=== PATIENT | male | born 1995 | race Hispanic/Latino ===

== ENCOUNTER 2020-07-21 22:33 | Observation (INO) | payer SELFPAY ==
[~2020-07-21] VITALS: Ht 172.7 cm; Wt 82.0 kg
[2020-07-21 23:39] LABS: HEMATOCRIT 50.8 % (39.0-50.0); HEMOGLOBIN 16.8 g/dl (14.0-18.0); IMMATURE GRANULOCYTES 0.8 % (0.0-5.0); MEAN CORPUSCULAR HGB 27.8 pG CALC (26.0-32.0); MEAN CORPUSCULAR HGB CONC 33.1 g/dL CAL (32.0-36.0); NEUT# 12.35 thou/uL (1.82-7.42); RED BLOOD COUNT 6.05 mill/uL (4.70-6.10); RED CELL DISTRI WIDTH 13.6 % (11.5-15.5)
[2020-07-21] MEDS ORDERED: MULTIVITAMI9 PO (23:41)
[2020-07-21 23:43] LABS: ALBUMIN 5.9 g/dL (3.2-5.0); BILIRUBIN, TOTAL 0.8 mg/dL (0.0-1.4); CREATININE 3.2 mg/dL (0.7-1.3); POTASSIUM 5.1 mmol/l (3.5-5.1)
[2020-07-21 23:51] LABS: TOTAL PROTEIN 11.1 g/dL (6.3-8.2)
--- NOTE | 2020-07-22 00:54 | NUR ---
Reassessment of patient completed. No distress noted.
--- NOTE | 2020-07-22 01:38 | NUR ---
Reassessment of patient completed. No distress noted.
--- NOTE | 2020-07-22 03:58 | NUR ---
Reassessment of patient completed. No distress noted.
--- NOTE | 2020-07-22 04:12 | NUR ---
Admission Note Report Given to: ELIZABETH Transported by: X Wheelchair Stretcher Transported with: X Nurse Transporter X [employer] IV O2 X Information [employer] Location: ICU X [facility]
--- NOTE | 2020-07-22 04:13 | NUR ---
Reassessment of patient completed. No distress noted.
[2020-07-22 04:15] VITALS: BP 120/76
--- NOTE | 2020-07-22 04:15 | NUR ---
PT RECEIVED FROM ED TO ROOM 274. ARRIVES VIA WC ACCOMPANIED BY CHANTEL LUKE. PT AMBULATORY TO BED. GAIT UNSTEADY. PT DENIES PAIN AT THIS TIME. ORIENTED TO UNIT, ROOM, CALL HURT, LIGHTS, TV. ICE WATER PROVIDED. CALL HURT WITHIN REACH. AGREES TO CALL PRN.
--- NOTE | 2020-07-22 04:30 | NUR ---
PHYSICAL ASSESMENT COMPLETE. PT CURRENTLY DENIES PAIN OR DISCOMFORT. SCHEDULED MEDICATIONS AND PRN MEDICATION ADMINISTERED, SEE E-MAR. PT DENIES ANY NEEDS AT THIS TIME. PLAN OF CARE REVIEWED, ITEMS WITHIN REACH, BED LOCKED IN LOW POSITION W/ BEDRAILS UP X2. CALL HURT WITHIN REACH, AGREES TO CALL PRN.
[2020-07-22 08:00] VITALS: BP 110/65
--- NOTE | 2020-07-22 08:19 | NUR ---
SHIFT CHANGE REPORT, PT AWAKE ALERT AND ORIENTED X 4, C/O MILD ABD PAIN @ 2/10, REFUSING TO EAT AT THIS TIME BUT DENIES NAUSEA, IVF 0.9 NS INFUSING @ 100ML/HR TO SITE IN RAC, CALL HURT IN REACH AND BED LOCKED IN LOWEST POSITION.
[2020-07-22 10:15] VITALS: BP 125/75
[2020-07-22 11:03] LABS: HEMATOCRIT 45.9 % (39.0-50.0); IMMATURE GRANULOCYTES 0.5 % (0.0-5.0); MEAN CELL VOLUME 86.9 fL CALC (80.0-100.0); MEAN CORPUSCULAR HGB 27.7 pG CALC (26.0-32.0); MEAN CORPUSCULAR HGB CONC 31.8 g/dL CAL (32.0-36.0); NEUT# 5.15 thou/uL (1.82-7.42); RED BLOOD COUNT 5.28 mill/uL (4.70-6.10); RED CELL DISTRI WIDTH 14.1 % (11.5-15.5)
[2020-07-22 11:04] LABS: HEMOGLOBIN 14.6 g/dl (14.0-18.0)
[2020-07-22 11:20] LABS: BUN 26 mg/dL (9-20); CHLORIDE 100 mmol/l (95-108); SODIUM 137 mmol/l (137-146)
[2020-07-22 11:23] LABS: ANION GAP 12 (6-22 (CALC)); BUN/CREATININE RATIO 22 (12-20 (CALC)); CARBON DIOXIDE 29 mmol/l (22-30); CREATININE 1.2 mg/dL (0.7-1.3); GFR > 60 ML/MIN (>=60 (CALC)); GFR FOR AFR.AMER. > 60 ML/MIN (>=60 (CALC)); POTASSIUM 3.9 mmol/l (3.5-5.1)
[2020-07-22] MEDS ORDERED: ZOFRAN4 MG/TAB PO (11:35)
[2020-07-22 12:21] LABS: URINE BILIRUBIN - DIPSTICK NEGATIVE (NEGATIVE); URINE BLOOD DIPSTICK NEGATIVE (NEGATIVE); URINE COLOR YELLOW; URINE GLUCOSE - DIPSTICK NEGATIVE (NEGATIVE); URINE KETONE NEGATIVE (NEGATIVE); URINE LEUK ESTERASE NEGATIVE (NEGATIVE); URINE NITRITE - DIPSTICK NEGATIVE (Negative); URINE PROTEIN - DIPSTICK TRACE mg/dL (NEG-TRACE); URINE SPECIFIC GRAVITY 1.025; URINE UROBILINOGEN - DIPSTICK 0.2 E.U./dL (0.2)
--- NOTE | 2020-07-22 12:24 | NUR ---
Discharge instructions given. Patient verbalizes understanding of same. Discharged in good condition via Wheelchair to Home with friend. All belongings sent with pt.
== END 2020-07-22 12:23 | disposition home or self-care (01) | DRG 641 ==
LOC: ED 22:33 → MS2 07-22 02:36
PROVIDERS: Family Medicine; Nurse Practitioner; ADMIT Internal Medicine; ATTEND Internal Medicine
DX: E86.0 Dehydration (principal); N17.9 Acute kidney failure, unspecified; F15.10 Other stimulant abuse, uncomplicated; F10.10 Alcohol abuse, uncomplicated; R93.5 Abnormal findings on diagnostic imaging of other abdominal regions, including retroperitoneum; E87.2 Acidosis; E83.52 Hypercalcemia; F17.200 Nicotine dependence, unspecified, uncomplicated; Z20.822 Contact with and (suspected) exposure to COVID-19
CPT/HCPCS: G0378; J1650

== ENCOUNTER 2021-04-19 03:39 | Emergency (ER) | payer SELFPAY ==
[~2021-04-19] VITALS: Ht 162.6 cm; Wt 76.0 kg
[~2021-04-19 03:39] MED LIST: MULTIVITAMI9 PO; ZOFRAN4 MG/TAB PO
[2021-04-19] MEDS ORDERED: KEFLEX500 MG PO (04:31)
[2021-04-19] MEDS ORDERED: ULTRAM50 M1 PO (04:31)
[2021-04-19 05:00] VITALS: BP 118/69
== END 2021-04-19 05:00 | disposition home or self-care (01) | DRG 605 ==
LOC: ED 03:39
PROC: 0HQCXZZ Repair Left Upper Arm Skin, External Approach (ICD-10-PCS; principal; 2021-04-19)
DX: S41.132A Puncture wound without foreign body of left upper arm, initial encounter (principal); X99.9XXA Assault by unspecified sharp object, initial encounter; Y92.009 Unspecified place in unspecified non-institutional (private) residence as the place of occurrence of the external cause

== ENCOUNTER 2021-04-20 17:19 | Emergency (ER) | payer SELFPAY ==
[~2021-04-20] VITALS: Ht 162.6 cm; Wt 81.8 kg
[~2021-04-20 17:19] MED LIST changes: +KEFLEX500 MG PO; +ULTRAM50 M1 PO
[2021-04-20 18:40] VITALS: BP 161/98
== END 2021-04-20 18:40 | disposition home or self-care (01) | DRG 950 ==
LOC: ED 17:19
DX: S41.112D Laceration without foreign body of left upper arm, subsequent encounter (principal); X58.XXXD Exposure to other specified factors, subsequent encounter

== ENCOUNTER 2021-04-28 19:31 | Emergency (ER) | payer SELFPAY ==
[~2021-04-28] VITALS: Ht 162.6 cm; Wt 75.0 kg
[2021-04-28 20:01] VITALS: BP 124/74
== END 2021-04-28 20:06 | disposition home or self-care (01) | DRG 950 ==
LOC: ED 19:31
DX: S41.112D Laceration without foreign body of left upper arm, subsequent encounter (principal); X58.XXXD Exposure to other specified factors, subsequent encounter; Z86.16 Personal history of COVID-19

== ENCOUNTER 2024-04-06 21:16 | Observation (INO) | payer SELFPAY ==
[~2024-04-06] VITALS: Ht 162.6 cm; Wt 103.8 kg
[2024-04-06 21:39] VITALS: BP 125/81
[2024-04-06] MEDS ORDERED: VANCOMYCIN HCL 1 GM in SODIUM CHLORIDE 0.9% 500 ML IV ONE (21:40)
[2024-04-06] MEDS ORDERED: KETOROLAC TROMETHAMINE 30 MG/ML SDV IV ONE (21:50)
[2024-04-06 22:00] VITALS: BP 118/68
[2024-04-06 22:01] LABS: BASO% 0.2 % (0-3); EOS% 2.7 % (0-8); HEMATOCRIT 43.3 % (39.0-50.0); HEMOGLOBIN 14.2 g/dl (14.0-18.0); IMMATURE GRANULOCYTES 0.4 % (0.0-5.0); LYMPH% 24.6 % (15-41); MEAN CELL VOLUME 84.4 fL CALC (80.0-100.0); MEAN CORPUSCULAR HGB 27.7 pG CALC (26.0-32.0); MEAN CORPUSCULAR HGB CONC 32.8 g/dL CAL (32.0-36.0); NEUT# 10.42 thou/uL (1.82-7.42); NEUT% 66.1 % (42-76); RED BLOOD COUNT 5.13 mill/uL (4.70-6.10)
[2024-04-06 22:18] LABS: C-REACTIVE PROTEIN 0.8 mg/dL (0-0.9); CREATININE 0.9 mg/dL (0.7-1.3); POTASSIUM 3.9 mmol/l (3.5-5.1); TOTAL PROTEIN 9.5 g/dL (6.3-8.2)
[2024-04-06 22:19] LABS: BILIRUBIN, TOTAL 0.3 mg/dL (0.2-1.3)
[2024-04-06] MEDS ORDERED: MAGNESIUM HYDROXIDE 30 ML UDC PO PRN (23:30)
[2024-04-06] MEDS ORDERED: ACETAMINOPHEN 325 MG/TAB PO PRN (23:30)
[2024-04-06] MEDS ORDERED: SODIUM CHLORIDE 0.9% 1,000 ML IV PRN (23:30)
[2024-04-07] VITALS (9 sets, daily range): BP systolic 100–127; BP diastolic 61–69
[2024-04-07] MEDS ORDERED: VANCOMYCIN HCL 1,250 MG in SODIUM CHLORIDE 0.9% 225 ML IV SCH (13:00)
[2024-04-07] MEDS ORDERED: ENOXAPARIN SODIUM 40 MG/0.4 ML SYR SC SCH (21:00)
[2024-04-08 05:05] VITALS: BP 111/69
[2024-04-08 07:06] VITALS: BP 108/61
[2024-04-08 08:20] LABS: BASO% 0.4 % (0-3); EOS% 5.5 % (0-8); HEMOGLOBIN 13.6 g/dl (14.0-18.0); IMMATURE GRANULOCYTES 0.8 % (0.0-5.0); LYMPH% 32.3 % (15-41); MEAN CELL VOLUME 86.4 fL CALC (80.0-100.0); MEAN CORPUSCULAR HGB CONC 32.4 g/dL CAL (32.0-36.0); MONO% 8.5 % (2-13); NEUT% 52.5 % (42-76); RED BLOOD COUNT 4.86 mill/uL (4.70-6.10)
[2024-04-08 08:22] VITALS: BP 108/61
[2024-04-08 08:38] LABS: CREATININE 0.8 mg/dL (0.7-1.3); POTASSIUM 4.2 mmol/l (3.5-5.1)
[2024-04-08 08:41] LABS: BILIRUBIN, TOTAL 0.5 mg/dL (0.2-1.3); TOTAL PROTEIN 7.5 g/dL (6.3-8.2)
[2024-04-08] MEDS ORDERED: DOXYCYCLINE100 MG PO (09:31)
[2024-04-08] MEDS ORDERED: CLOTRIMAZOLE 1% TOP SCH (10:30)
== END 2024-04-08 11:37 | disposition home or self-care (01) | DRG 603 ==
LOC: ED 21:16 → ED-I 23:16 → ED 23:29 → MS2 23:30
PROVIDERS: Family Medicine; Nurse Practitioner Family; ADMIT Internal Medicine; ATTEND Internal Medicine
DX: L03.116 Cellulitis of left lower limb (principal); B35.3 Tinea pedis; F10.10 Alcohol abuse, uncomplicated; Y90.6 Blood alcohol level of 120-199 mg/100 ml; Z86.16 Personal history of COVID-19
CPT/HCPCS: G0378; J0696; J1650; J3370